=== PATIENT | female | born 1955 | race Asian ===

== ENCOUNTER 2017-01-26 07:18 | Emergency (ER) | payer OTHER ==
[~2017-01-26] VITALS: Ht 160 cm; Wt 86.2 kg
[2017-01-26] MEDS ORDERED: DICL1GEL2 TOP (07:49)
[2017-01-26] MEDS ORDERED: METOPROLOL25 M1 OR (07:49)
[2017-01-26] MEDS ORDERED: DICLOFEN POT50 MG OR (07:50)
[2017-01-26] MEDS ORDERED: ASA LOW DOSE81 MG PO (07:50)
[2017-01-26 08:23] VITALS: BP 150/88; TEMP 98
== END 2017-01-26 08:23 | disposition home or self-care (01) ==
LOC: ED 07:18
DX: S40.011A Contusion of right shoulder, initial encounter (principal); W00.1XXA Fall from stairs and steps due to ice and snow, initial encounter; Y92.129 Unspecified place in nursing home as the place of occurrence of the external cause
CPT/HCPCS: 99282

== ENCOUNTER 2017-11-23 09:33 | Outpatient (CLI) | payer OTHER ==
[~2017-11-23 09:33] MED LIST: ASA LOW DOSE81 MG PO; DICL1GEL2 TOP; DICLOFEN POT50 MG OR; METOPROLOL25 M1 OR
[2017-11-23 10:12] LABS: PLATELET COUNT 219 K/uL (152-353)
[2017-11-23 10:40] LABS: POTASSIUM 3.8 mmol/L (3.6-5.2)
== END 2017-11-23 19:28 | disposition home or self-care (01) ==
LOC: LABW 09:33
PROVIDERS: Nurse Practitioner Family
DX: I10 Essential (primary) hypertension (principal); Z79.899 Other long term (current) drug therapy; R73.9 Hyperglycemia, unspecified; M19.90 Unspecified osteoarthritis, unspecified site; R53.83 Other fatigue
CPT/HCPCS: 36415; 80053; 80061; 81000; 82043; 82570; 83036; 84443; 85027

== ENCOUNTER 2020-03-29 13:51 | Outpatient (CLI) | payer OTHER | END 2020-03-29 20:00 | disposition home or self-care (01) | LOC: INF 13:51 | PROVIDERS: ATTEND Internal Medicine Endocrinology, Diabetes & Metabolism | DX: Z23 Encounter for immunization (principal) | CPT/HCPCS: 96372 ==

== ENCOUNTER 2020-04-24 13:04 | Outpatient (CLI) | payer OTHER | END 2020-04-24 19:23 | disposition home or self-care (01) | LOC: INF 13:04 | PROVIDERS: ATTEND Internal Medicine | DX: Z23 Encounter for immunization (principal) | CPT/HCPCS: 96372 ==

== ENCOUNTER 2021-09-15 08:24 | Emergency (ER) | payer OTHER ==
[~2021-09-15] VITALS: Ht 157.5 cm; Wt 89.8 kg
[2021-09-15 08:32] VITALS: TEMP 97.1
[2021-09-15] MEDS ORDERED: CARB/LEVO1 TA2 PO (08:35)
[2021-09-15] MEDS ORDERED: CARV12.5 PO (08:37)
[2021-09-15 09:26] VITALS: BP 160/78
== END 2021-09-15 09:26 | disposition home or self-care (01) ==
LOC: ED 08:24
DX: J06.9 Acute upper respiratory infection, unspecified (principal); U07.1 COVID-19
CPT/HCPCS: 87502; 87635; 87651; 99283; U0003

== ENCOUNTER 2021-12-18 12:23 | Outpatient (CLI) | payer OTHER ==
[~2021-12-18 12:23] MED LIST changes: +CARB/LEVO1 TA2 PO; +CARV12.5 PO
== END 2021-12-18 20:41 | disposition home or self-care (01) ==
LOC: LAB 12:23
PROVIDERS: ATTEND Internal Medicine Gastroenterology
DX: K64.0 First degree hemorrhoids (principal)
CPT/HCPCS: 82272